=== PATIENT | female | born 1975 | race Caucasian/White ===

== ENCOUNTER 2016-07-12 12:52 | Emergency (ER) | payer BC ==
[~2016-07-12] VITALS: Ht 165.1 cm; Wt 108.6 kg
[~2016-07-12 12:52] MED LIST: ABILIFY2 MG PO; AMBIEN 10MG10 MG PO; CIPRO 500MG TA500 MG PO; FLAGYL500 MG PO; GLUCOPHAGE500 MG/TAB PO; KLONOPIN 0.5MG0.5 MG PO; LEVAQUIN 5500 MG/TA1 PO; LEXAPRO20 MG PO; NORCO 325 MG-51 TAB PO; PERCOCET 325 MG1 TA2 PO; PYRIDIUM200 M1 PO; WELLBUTRIN SR150 M1 PO; ZOFRAN 4MG T4 MG/TAB PO; ZOFRAN ODT4 MG PO
[2016-07-12 13:51] LABS: HEMATOCRIT 41.8 % (37.0-47.0); HEMOGLOBIN 14.1 g/dl (12.5-16.0); MEAN CELL VOLUME 87 fl (80.0-100.0); MEAN CORPUSCULAR HEMOGLOBIN 29 pg (27.0-31.0); MEAN CORPUSCULAR HGB CONC 34 g/dl (33.0-37.0); MEAN PLATELET VOLUME 9.6 fl (7.4-10.4); PLATELET COUNT 212 K/mm3 (130-400); REDCELL DISTRIBUTION WIDTH-CV 14.3 % (11.5-14.5); WHITE BLOOD COUNT 5.9 K/mm3 (4.8-10.8)
[2016-07-12 13:57] LABS: ADD PATHOLOGY DIFF REVIEW NO
[2016-07-12 13:59] LABS: ADJUSTED CALCIUM 8.2 mg/dL (8.4-10.2); ALBUMIN 3.8 gm/dL (3.5-5.0); BILIRUBIN,TOTAL 0.5 mg/dL (0.0-1.0); CREATININE, serum 0.73 mg/dL (0.52-1.25); POTASSIUM 3.5 mmol/L (3.4-5.0); TOTAL PROTEIN 7.2 gm/dL (6.4-8.2)
[2016-07-12 14:06] LABS: INFLUENZA B NEGATIVE
[2016-07-12 14:31] LABS: BAND 18 % (0-10); NEUTROPHILS 61 % (42.0-75.2); PLATELET ESTIMATE NORMAL (NORMAL); TOTAL CELLS COUNTED 100; TOXIC GRANULATION PRESENT
[2016-07-12 15:46] LABS: PH 6 (5-8); URINE APPEARANCE Hazy; URINE BACTERIA None Seen /hpf; URINE BILIRUBIN Negative (NEGATIVE); URINE BLOOD 1+ (NEGATIVE); URINE COLOR Yellow; URINE GLUCOSE Negative (NEGATIVE); URINE KETONE Negative (NEGATIVE); URINE UROBILINOGEN Negative (NEGATIVE); URINE WBC 0-2 /hpf
[2016-07-12] MEDS ORDERED: LEVAQUIN 750MG750 M1 PO (16:01)
[2016-07-12 16:21] VITALS: BP 111/70; PULSE 114; TEMP 100.6
== END 2016-07-12 16:21 | disposition home or self-care (01) ==
LOC: COL.ER 12:52
PROVIDERS: Emergency Medicine
DX: J06.9 Acute upper respiratory infection, unspecified (principal)
CPT/HCPCS: J1885; J7030

== ENCOUNTER 2016-07-14 15:18 | Inpatient (IN) | payer BC ==
[~2016-07-14] VITALS: Ht 165.1 cm; Wt 102.9 kg
[~2016-07-14 15:18] MED LIST changes: +LEVAQUIN 750MG750 M1 PO
[2016-07-14] MEDS ORDERED: VENTOLIN0.09 MG IH (15:25)
[2016-07-14 16:59] LABS: HEMATOCRIT 40.4 % (37.0-47.0); HEMOGLOBIN 13.6 g/dl (12.5-16.0); MEAN CELL VOLUME 85 fl (80.0-100.0); MEAN CORPUSCULAR HEMOGLOBIN 29 pg (27.0-31.0); MEAN CORPUSCULAR HGB CONC 34 g/dl (33.0-37.0); MEAN PLATELET VOLUME 10.7 fl (7.4-10.4); PLATELET COUNT 156 K/mm3 (130-400); RED BLOOD COUNT 4.73 M/mm3 (4.10-5.30); REDCELL DISTRIBUTION WIDTH-CV 14.6 % (11.5-14.5); WHITE BLOOD COUNT 4.5 K/mm3 (4.8-10.8)
[2016-07-14 17:00] LABS: ADJUSTED CALCIUM 8.5 mg/dL (8.4-10.2); ALBUMIN 3.4 gm/dL (3.5-5.0); BILIRUBIN,TOTAL 0.7 mg/dL (0.0-1.0); CREATININE, serum 1.02 mg/dL (0.52-1.25); POTASSIUM 3.6 mmol/L (3.4-5.0); TOTAL PROTEIN 6.9 gm/dL (6.4-8.2)
[2016-07-14 17:10] LABS: ADD PATHOLOGY DIFF REVIEW NO
[2016-07-14 18:36] LABS: BAND 23 % (0-10); NEUTROPHILS 65 % (42.0-75.2); TOTAL CELLS COUNTED 100
[2016-07-14 18:37] LABS: MICROCYTOSIS 1+; PLATELET ESTIMATE NORMAL (NORMAL)
[2016-07-14 19:38] VITALS: BP 110/58; PULSE 105; TEMP 98.3
[2016-07-14 23:43] VITALS: BP 118/68; PULSE 96; TEMP 99.4
[2016-07-15 02:57] VITALS: BP 130/72; PULSE 102; TEMP 98.8
[2016-07-15 07:20] VITALS: BP 116/65; PULSE 93; TEMP 98.8
[2016-07-15 08:38] LABS: HEMOGLOBIN 12.1 g/dl (12.5-16.0); MEAN CELL VOLUME 87 fl (80.0-100.0); MEAN CORPUSCULAR HEMOGLOBIN 29 pg (27.0-31.0); MEAN CORPUSCULAR HGB CONC 34 g/dl (33.0-37.0); MEAN PLATELET VOLUME 10.6 fl (7.4-10.4); PLATELET COUNT 145 K/mm3 (130-400); RED BLOOD COUNT 4.17 M/mm3 (4.10-5.30); REDCELL DISTRIBUTION WIDTH-CV 14.7 % (11.5-14.5); WHITE BLOOD COUNT 3.4 K/mm3 (4.8-10.8)
[2016-07-15 08:56] LABS: ADD PATHOLOGY DIFF REVIEW NO; HEMATOCRIT 36.1 % (37.0-47.0)
[2016-07-15 09:18] LABS: CALCIUM 7.5 mg/dL (8.4-10.2); CREATININE, serum 0.76 mg/dL (0.52-1.25); POTASSIUM 3.4 mmol/L (3.4-5.0)
[2016-07-15 10:27] LABS: BAND 16 % (0-10); NEUTROPHILS 75 % (42.0-75.2); TOTAL CELLS COUNTED 100
[2016-07-15 11:00] VITALS: BP 101/67; PULSE 92; TEMP 98.3
[2016-07-15 16:36] VITALS: BP 105/70; PULSE 92; TEMP 98.2
[2016-07-15 20:23] VITALS: BP 120/74; PULSE 95; TEMP 98.3
[2016-07-16] VITALS (7 sets, daily range): BP systolic 118–136; BP diastolic 59–87; PULSE 64–106; TEMP 98–99.1
[2016-07-17] VITALS (7 sets, daily range): BP systolic 99–152; BP diastolic 49–93; PULSE 93–107; TEMP 97.4–9738
[2016-07-17 07:59] LABS: ADJUSTED CALCIUM 9.1 mg/dL (8.4-10.2); BILIRUBIN,TOTAL 0.5 mg/dL (0.0-1.0); CALCIUM 8.3 mg/dL (8.4-10.2); CREATININE, serum 0.62 mg/dL (0.52-1.25); POTASSIUM 3.6 mmol/L (3.4-5.0); TOTAL PROTEIN 6.3 gm/dL (6.4-8.2)
[2016-07-17 11:31] LABS: C-REACTIVE PROTEIN 5.9 mg/dL (0.0-0.9)
[2016-07-17 11:47] LABS: INR 1.1 (0.8-3.0); PROTHROMBIN TIME 12.1 SECONDS (9.7-12.8)
[2016-07-18 03:27] VITALS: BP 141/87; PULSE 97; TEMP 98.1
[2016-07-18 09:45] VITALS: BP 143/74; PULSE 98; TEMP 98
[2016-07-18 11:26] LABS: PLEURAL FLUID LEFT SIDE; PLEURAL FLUID COLOR AMBER
[2016-07-18 11:27] LABS: PLEURAL FLUID APPEARANCE CLOUDY
[2016-07-18 12:05] LABS: PH 6 (5-8); SQUAMOUS EPITHELIAL 0-2 /hpf; URINE APPEARANCE Cloudy; URINE BACTERIA None Seen /hpf; URINE BILIRUBIN Negative (NEGATIVE); URINE BLOOD 2+ (NEGATIVE); URINE COLOR Yellow; URINE GLUCOSE 3+ (NEGATIVE); URINE KETONE 1+ (NEGATIVE); URINE RBC >50 /hpf; URINE UROBILINOGEN Negative (NEGATIVE); URINE WBC None Seen /hpf
[2016-07-18 12:51] LABS: GLUCOSE,PLEURAL FLUID 270 mg/dL
[2016-07-18 12:55] LABS: MEAN CELL VOLUME 89 fl (80.0-100.0); MEAN CORPUSCULAR HGB CONC 33 g/dl (33.0-37.0); MEAN PLATELET VOLUME 9.9 fl (7.4-10.4); PLATELET COUNT 248 K/mm3 (130-400); RED BLOOD COUNT 3.84 M/mm3 (4.10-5.30); REDCELL DISTRIBUTION WIDTH-CV 15.2 % (11.5-14.5); WHITE BLOOD COUNT 3.4 K/mm3 (4.8-10.8)
[2016-07-18 12:59] LABS: ADJUSTED CALCIUM 9.1 mg/dL (8.4-10.2); ALBUMIN 2.9 gm/dL (3.5-5.0); BILIRUBIN,TOTAL 0.5 mg/dL (0.0-1.0); CALCIUM 8.2 mg/dL (8.4-10.2); CREATININE, serum 0.58 mg/dL (0.52-1.25); POTASSIUM 3.6 mmol/L (3.4-5.0); TOTAL PROTEIN 6.1 gm/dL (6.4-8.2)
[2016-07-18 13:00] VITALS: BP 138/82; PULSE 93; TEMP 98.7
[2016-07-18 13:01] LABS: ADD PATHOLOGY DIFF REVIEW NO; HEMOGLOBIN 11.2 g/dl (12.5-16.0); MEAN CORPUSCULAR HEMOGLOBIN 29 pg (27.0-31.0)
[2016-07-18 13:36] LABS: BAND 5 % (0-10); NEUTROPHILS 68 % (42.0-75.2); PLATELET ESTIMATE NORMAL (NORMAL); TOTAL CELLS COUNTED 100
[2016-07-18 15:19] VITALS: BP 132/81; PULSE 99; TEMP 98
[2016-07-18 21:04] VITALS: BP 131/83; PULSE 103; TEMP 98.8
[2016-07-18 22:27] VITALS: BP 131/76; PULSE 91; TEMP 97.9
[2016-07-18 22:30] LABS: ARTERIAL BLD GAS O2 SATURATION 93.3 % (92-100); ARTERIAL BLD GAS TCO2 CT 28.5; ARTERIAL BLOOD GAS BASE EXCESS 3.5 (-2-2); ARTERIAL BLOOD GAS HCO3 27.3 meq/L (22-26); ARTERIAL BLOOD GAS PO2 66.2 mmHg (80-100); ARTERIAL BLOOD GAS pH 7.47 (7.35-7.45)
[2016-07-18 22:31] LABS: ALLEN TEST YES; ALLENS TEST RESULT PASS; ATS? YES
[2016-07-19 02:27] VITALS: BP 139/78; PULSE 86; TEMP 98.5
[2016-07-19 06:59] LABS: MEAN CELL VOLUME 89 fl (80.0-100.0); MEAN CORPUSCULAR HGB CONC 32 g/dl (33.0-37.0); MEAN PLATELET VOLUME 9.8 fl (7.4-10.4); PLATELET COUNT 262 K/mm3 (130-400); RED BLOOD COUNT 3.81 M/mm3 (4.10-5.30)
[2016-07-19 07:20] LABS: CREATININE, serum 0.5 mg/dL (0.52-1.25); MAGNESIUM 2.3 mg/dL (1.6-2.3); PHOSPHOROUS 3.1 mg/dL (2.5-4.5); POTASSIUM 3.9 mmol/L (3.4-5.0)
[2016-07-19 07:25] LABS: VANCOMYCIN TROUGH 18.84 ug/mL (7.00-20.00)
[2016-07-19 07:32] LABS: ADD PATHOLOGY DIFF REVIEW NO; HEMOGLOBIN 10.9 g/dl (12.5-16.0); MEAN CORPUSCULAR HEMOGLOBIN 29 pg (27.0-31.0)
[2016-07-19 07:51] VITALS: BP 136/76; PULSE 92; TEMP 98.7
[2016-07-19 09:43] LABS: BAND 6 % (0-10); METAMYELOCYTE 3 % (0-0); NEUTROPHILS 69 % (42.0-75.2); PLATELET ESTIMATE NORMAL (NORMAL); TOTAL CELLS COUNTED 100
[2016-07-19 09:45] LABS: ANISOCYTOSIS 1+
[2016-07-19 11:40] VITALS: BP 131/66; PULSE 93
[2016-07-19 15:29] VITALS: BP 150/79; PULSE 93; TEMP 98.5
[2016-07-19 19:17] VITALS: BP 137/83; PULSE 83; TEMP 98.5
[2016-07-19 23:25] VITALS: BP 148/82; PULSE 81; TEMP 97.8
[2016-07-20 03:33] VITALS: BP 154/74; PULSE 82; TEMP 97.4
[2016-07-20 08:28] VITALS: BP 153/86; PULSE 61; TEMP 99.6
[2016-07-20 11:53] VITALS: BP 145/76; PULSE 69; TEMP 97.9
[2016-07-20 16:02] VITALS: BP 157/88; PULSE 70; TEMP 97.9
[2016-07-20 19:57] VITALS: BP 150/68; PULSE 66; TEMP 97.6
[2016-07-21] VITALS (7 sets, daily range): BP systolic 125–153; BP diastolic 68–80; PULSE 57–77; TEMP 97.1–98.1
[2016-07-21 06:53] LABS: GRAN # 3.9 (1.4-6.5); GRAN % 78.6 % (42.2-75.2); LYMPH # 0.5 (1.2-3.4); LYMPH % 9.3 % (20.0-51.0); MEAN CELL VOLUME 89 fl (80.0-100.0); MEAN CORPUSCULAR HGB CONC 32 g/dl (33.0-37.0); MEAN PLATELET VOLUME 10.3 fl (7.4-10.4); MONO # 0.6 (0.1-0.6); MONO % 11.3 % (1.7-9.3); PLATELET COUNT 338 K/mm3 (130-400); RED BLOOD COUNT 3.94 M/mm3 (4.10-5.30); REDCELL DISTRIBUTION WIDTH-CV 14.6 % (11.5-14.5)
[2016-07-21 06:57] LABS: HEMATOCRIT 35.2 % (37.0-47.0); HEMOGLOBIN 11.3 g/dl (12.5-16.0); MEAN CORPUSCULAR HEMOGLOBIN 29 pg (27.0-31.0)
[2016-07-22 00:33] VITALS: BP 155/75; PULSE 57; TEMP 98.1
[2016-07-22 04:52] VITALS: BP 154/66; PULSE 51; TEMP 97.7
[2016-07-22 08:31] VITALS: BP 143/74; PULSE 62; TEMP 97.5
[2016-07-22] MEDS ORDERED: VENTOLIN0.09 MG IH (09:43)
[2016-07-22] MEDS ORDERED: FLONASEALLERGY NS (09:44)
[2016-07-22] MEDS ORDERED: TESSALON P100 MG/CAP PO (09:45)
[2016-07-22 12:02] VITALS: BP 148/72; PULSE 58; TEMP 97.8
[2016-07-22 16:02] VITALS: BP 149/74; PULSE 57; TEMP 98
[2016-07-22 21:06] VITALS: BP 123/62; PULSE 67; TEMP 98.7
[2016-07-23] VITALS (11 sets, daily range): BP systolic 115–153; BP diastolic 62–82; PULSE 53–77; TEMP 97.4–98.7
[2016-07-23 09:37] LABS: GLUCOSE,PLEURAL FLUID 153 mg/dL
[2016-07-23 10:10] LABS: PLEURAL FLUID LEFT SIDE
[2016-07-23 10:11] LABS: PLEURAL FLUID APPEARANCE CLOUDY; PLEURAL FLUID COLOR YELLOW
[2016-07-24 03:17] VITALS: BP 135/74; PULSE 63; TEMP 97.4
[2016-07-24 07:51] VITALS: BP 137/71; PULSE 58; TEMP 97.9
[2016-07-24] MEDS ORDERED: LEVAQUIN 5500 MG/TA1 PO (09:49)
[2016-07-24] MEDS ORDERED: FLAGYL500 MG PO (09:52)
[2016-07-24] MEDS ORDERED: PREDNISONE20 MG PO (09:53)
[2016-07-24 12:30] VITALS: BP 139/70; PULSE 62; TEMP 97.8
== END 2016-07-24 19:34 | disposition home or self-care (01) | DRG 190 ==
LOC: COL.ER 15:18 → MEDICAL 16:30
PROVIDERS: Emergency Medicine; Family Medicine; Internal Medicine; Internal Medicine Pulmonary Disease; Nurse Practitioner Family
PROC: 0B9B8ZX Drainage of Left Lower Lobe Bronchus, Via Natural or Artificial Opening Endoscopic, Diagnostic (ICD-10-PCS; 2016-07-23)
PROC: 0BJ08ZZ Inspection of Tracheobronchial Tree, Via Natural or Artificial Opening Endoscopic (ICD-10-PCS; 2016-07-23)
PROC: 0W9B3ZX Drainage of Left Pleural Cavity, Percutaneous Approach, Diagnostic (ICD-10-PCS; principal; 2016-07-23 08:00)
PROC: 0B988ZX Drainage of Left Upper Lobe Bronchus, Via Natural or Artificial Opening Endoscopic, Diagnostic (ICD-10-PCS; 2016-07-23 08:00)
DX: J44.0 Chronic obstructive pulmonary disease with (acute) lower respiratory infection (principal); J96.01 Acute respiratory failure with hypoxia; J12.1 Respiratory syncytial virus pneumonia; J15.9 Unspecified bacterial pneumonia; A04.7 Enterocolitis due to Clostridium difficile; E87.1 Hypo-osmolality and hyponatremia; J91.8 Pleural effusion in other conditions classified elsewhere; J44.1 Chronic obstructive pulmonary disease with (acute) exacerbation; F17.210 Nicotine dependence, cigarettes, uncomplicated; E87.8 Other disorders of electrolyte and fluid balance, not elsewhere classified; J45.909 Unspecified asthma, uncomplicated; R73.9 Hyperglycemia, unspecified; T38.0X5A Adverse effect of glucocorticoids and synthetic analogues, initial encounter
CPT/HCPCS: 99223-AI; 99232-AI; 99233-AI; 99239; A9284; C1751; J0456; J0696; J1170; J1644; J1650; J1815; J1940; J1956; J2185; J2405; J2704; J2920; J2930; J3370; J7030; J7050; J7512; Q9967

== ENCOUNTER → 2016-12-01 | Outpatient (CLI) | payer OTHER ==
[~2016-12-01] MED LIST changes: +FLONASEALLERGY NS; +PREDNISONE20 MG PO; +TESSALON P100 MG/CAP PO; +VENTOLIN0.09 MG IH
== END ==
LOC: COL.PUL 11-24 09:00
DX: R06.02 Shortness of breath (principal); F17.200 Nicotine dependence, unspecified, uncomplicated
CPT/HCPCS: J7674

== ENCOUNTER 2017-01-13 16:00 | Outpatient (RCR) | payer OTHER | END 2017-01-15 15:08 | LOC: WSPT 16:00 | DX: S82.62XD Displaced fracture of lateral malleolus of left fibula, subsequent encounter for closed fracture with routine healing (principal); S93.402D Sprain of unspecified ligament of left ankle, subsequent encounter ==

== ENCOUNTER → 2017-07-14 | Outpatient (CLI) | payer OTHER | LOC: MC.RAD 11:20 | DX: Z12.31 Encounter for screening mammogram for malignant neoplasm of breast (principal) ==